=== PATIENT | female | born 1970 | race Native Hawaiian/Other Pacific Islander ===

== ENCOUNTER → 2016-12-02 | Outpatient (CLI) | payer OTHER ==
--- NOTE | 2016-12-02 11:38 | US ---
Ultrasound Pelvis Complete (Transabdominal and Endovaginal) Including Duplex/Doppler Imaging History: R10.31, Z80.41, V18.41, uterine fibroids. Technique: Transabdominal and endovaginal ultrasound images were obtained. Endovaginal images obtain ed for better evaluation of the uterine myometrium and adnexa. Duplex/Doppler imaging of adnexa. Findings: Uterus measures 10 x 5 x 6 cm. Endometrial thickness is 9 mm. Uterus is retroflexed and di ffusely heterogenous. In the left side of the uterus, there is a subserosal heterogenous 6.3 x 4.3 x 4.5 cm leiomyoma. In the posterior body of the uterus, there is a subserosal heterogenous 5.5 x 4.4 x 3.3 cm leiomyoma. Also in the posterior aspect of the uterus slighty more towards the fundus, there is a subserosal 1.8 x 1.4 x 1.3 cm leiomyoma. In the right side of the body of the uterus, there is a subserosal heterogenous 3.6 x 3.2 x 3.1 cm leiomyoma. Right ovary measures 2.9 x 2.4 x 1.5 cm. Left ovary measures 4.2 x 2.8 x 2.5 cm. In the left ovary, t here is a complex cyst with internal echoes measuring 1.9 x 1.7 x 1.6 cm. Minimal free fluid in the p maryana. Color Doppler flow to both ovaries without torsion. Impression: 1. Leiomyomatous uterus with at least 4 discrete leiomyomas measuring up to 6.3 cm. 2. Left ovarian complex cyst measuring 1.9 x 1.7 x 1.6 cm, which may represent a hemorrhagic cyst. Re commend follow-up ultrasound imaging in 8 to 12 weeks to ensure resolution. 3. No ovarian torsion. Consider Interventional Radiology consult for uterine fibroid embolization, if clinically indicated, with Dr. Yumiko Carroll at [phone].
== END ==
LOC: FIMAGING 09:55
PROVIDERS: ATTEND Nurse Practitioner Women's Health
DX: R10.31 Right lower quadrant pain (principal); D25.9 Leiomyoma of uterus, unspecified; N83.292 Other ovarian cyst, left side; Z80.41 Family history of malignant neoplasm of ovary

== ENCOUNTER → 2016-12-02 | Outpatient (CLI) | payer OTHER ==
--- NOTE | 2016-12-02 13:37 | MA ---
Screening Digital Mammogram With Tomosynthesis Clinical Indications: Routine screening. Technique: Standard digital cephalocaudal and tomosynthesis mediolateral oblique projections are obt ained. The digital images are processed by the [employer] computer aided detection system. Comparison: January 2015, September 2013, June 2011 Breast density: C; The breast tissue is heterogeneously dense, which could obscure detection of small masses. Findings: CAD was reviewed. No suspicious findings are identified. Impression: Negative mammogram. BI-RADS 1. Recommendation: Routine screening is recommended in one year, as long as physical examination is robel ign in this patient with moderately dense breast parenchyma. [facility] will send a result letter to the patient. Negative mammography should not preclude additional workup of a clinically suspicious finding. The patient's information is entered into a reminder system with a target due date for her next mammo gram.
== END ==
LOC: FIMAGING 09:59
DX: Z12.31 Encounter for screening mammogram for malignant neoplasm of breast (principal)
CPT/HCPCS: G0202